=== PATIENT | female | born 1980 | race Caucasian/White ===

== ENCOUNTER 2021-03-07 11:20 | Emergency (ER) | payer MEDICAID ==
[2021-03-07 11:24] VITALS: BP 134/93; PULSE 92
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
--- NOTE | 2021-03-07 13:35 | CR ---
CHEST: 2 view CLINICAL HISTORY:Dyspnea COMPARISON:None FINDINGS: The heart size, pulmonary vascularity and hilar structures are normal. No infiltrate effusion or pneumothorax is seen. IMPRESSION: No acute cardiopulmonary process.
== END 2021-03-07 12:29 | disposition home or self-care (01) ==
LOC: JP.ED 11:20
DX: M94.0 Chondrocostal junction syndrome [Tietze] (principal); Z88.1 Allergy status to other antibiotic agents; Z72.0 Tobacco use; Z79.899 Other long term (current) drug therapy
CPT/HCPCS: 71046; 71046-26; 99283; 99284-25

== ENCOUNTER 2022-01-08 20:07 | Emergency (ER) | payer MEDICAID ==
[2022-01-08 20:22] VITALS: BP 143/94; PULSE 99
== END 2022-01-08 21:49 | disposition home or self-care (01) ==
LOC: JP.ED 20:07
DX: R25.2 Cramp and spasm (principal); Z88.1 Allergy status to other antibiotic agents; Z72.0 Tobacco use
CPT/HCPCS: 36415; 80053; 84443; 85025; 99282; 99283

== ENCOUNTER 2022-12-07 18:09 | Emergency (ER) | payer BC, MEDICAID ==
[2022-12-07] MEDS ORDERED: Sodium Chloride 0.9% 10 ML Syringe FLUSH PRN (18:38)
[2022-12-07] MEDS ORDERED: Lactated Ringers 1,000 ML IV SCH (18:45)
[2022-12-07 19:22] VITALS: BP 134/86; PULSE 100
[2022-12-07 19:28] LABS: ESTIMATED GFR 112 mL/min (>60)
[2022-12-07] MEDS ORDERED: Metoclopramide 10 MG/2 ML SDV IVPUSH ONE (19:41)
[2022-12-07 19:48] LABS: CORONAVIRUS COVID-19 NAA POSITIVE (NEGATIVE)
== END 2022-12-07 20:23 | disposition home or self-care (01) ==
LOC: JP.ED 18:09
DX: U07.1 COVID-19 (principal); D50.9 Iron deficiency anemia, unspecified; Z88.1 Allergy status to other antibiotic agents; Z79.899 Other long term (current) drug therapy; Z90.49 Acquired absence of other specified parts of digestive tract
CPT/HCPCS: 0241U; 36415; 80053; 85025; 86140; 96361; 96374; 99283; 99284; J2765; J3490; J7120

== ENCOUNTER 2023-06-10 23:23 | Emergency (ER) | payer BC ==
[2023-06-11 00:20] VITALS: BP 140/90; PULSE 80
[2023-06-11] MEDS ORDERED: Meclizine 25 MG Tab PO STA (01:25)
== END 2023-06-11 02:07 | disposition home or self-care (01) ==
LOC: JP.ED 23:23
DX: F41.1 Generalized anxiety disorder (principal); E66.9 Obesity, unspecified; Z68.41 Body mass index [BMI] 40.0-44.9, adult; F17.210 Nicotine dependence, cigarettes, uncomplicated; Z88.1 Allergy status to other antibiotic agents; Z86.16 Personal history of COVID-19
CPT/HCPCS: 99283; A9270

== ENCOUNTER 2025-05-20 10:11 | Emergency (ER) | payer BC ==
[2025-05-20] MEDS: LORazepam 2 MG/ML SDV IVPUSH ONE (11:30)
[2025-05-20] MEDS: Sodium Chloride 0.9% 10 ML Syringe FLUSH PRN (11:34)
[2025-05-20 11:37] VITALS: BP 154/77; PULSE 89
== END 2025-05-20 13:30 | disposition home or self-care (01) ==
LOC: JP.ED 10:11
DX: T50.5X1A Poisoning by appetite depressants, accidental (unintentional), initial encounter (principal); E66.9 Obesity, unspecified; Z88.1 Allergy status to other antibiotic agents; Z79.899 Other long term (current) drug therapy; Z86.16 Personal history of COVID-19; Z87.891 Personal history of nicotine dependence; Z68.41 Body mass index [BMI] 40.0-44.9, adult
CPT/HCPCS: 96361; 96374; 99283; 99284; J2060; J7030

== ENCOUNTER 2025-08-08 12:32 | Emergency (ER) | payer BC ==
[2025-08-08 13:05] VITALS: BP 172/80; PULSE 96
[2025-08-08 14:18] LABS: PLATELET COUNT,PLT 486 K/uL (130-375); RED BLOOD CELL COUNT 3.89 M/uL (3.77-5.24); WHITE BLOOD CELL COUNT,WBC 9.2 K/uL (3.2-11.0)
[2025-08-08 14:39] LABS: ATYPICAL LYMPHOCYTES FEW; BAND ABSOLUTE MAN 0.09 K/uL; BAND PERCENT MAN 1 % (5-11); EOSINOPHILS ABSOLUTE MAN 0.28 K/uL (0.00-0.40); EOSINOPHILS PERCENT MAN 3 % (2-4); LYMPHOCYTES ABSOLUTE MAN 3.50 K/uL (0.8-3.3); LYMPHOCYTES PERCENT MAN 38 % (24-44); MONOCYTES ABSOLUTE MAN 0.28 K/uL (0.20-0.90); MONOCYTES PERCENT MAN 3 % (2-6); NEUTROPHILS ABSOLUTE MAN 5.06 K/uL (1.0-7.6); SEG NEUTROPHILS PERCENT MAN 55 % (36-66)
== END 2025-08-08 17:40 | disposition home or self-care (01) ==
LOC: JP.ED 12:32
DX: D50.0 Iron deficiency anemia secondary to blood loss (chronic) (principal); R25.2 Cramp and spasm; E66.9 Obesity, unspecified; Z68.42 Body mass index [BMI] 45.0-49.9, adult; Z86.16 Personal history of COVID-19; Z90.49 Acquired absence of other specified parts of digestive tract; Z88.1 Allergy status to other antibiotic agents; Z88.8 Allergy status to other drugs, medicaments and biological substances; Z79.899 Other long term (current) drug therapy
CPT/HCPCS: 36415; 85025; 99283; 99284